=== PATIENT | female | born 1965 | race Caucasian/White ===

== ENCOUNTER 2018-05-12 01:01 | Emergency (ER) | payer OTHER ==
[~2018-05-12] VITALS: Ht 167.6 cm; Wt 69.9 kg
[2018-05-12 01:06] VITALS: Ht 167.6 cm; Wt 69.9 kg
[2018-05-12] MEDS ORDERED: HYDROCODONE/APAP (5/325) TAB PO ONE (02:00)
[2018-05-12] MEDS ORDERED: HYDR-4011 PO (03:09)
[2018-05-12] MEDS ORDERED: IBUP-1542 PO (03:09)
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
[2018-05-12 03:46] VITALS: BP 115/59; PULSE 71; RESP 18
== END 2018-05-12 03:48 | disposition home or self-care (01) ==
LOC: FTE 01:01
DX: S09.90XA Unspecified injury of head, initial encounter (principal); S00.83XA Contusion of other part of head, initial encounter; S69.92XA Unspecified injury of left wrist, hand and finger(s), initial encounter; Y04.8XXA Assault by other bodily force, initial encounter
CPT/HCPCS: 29125; 70450; 70486; 73110; 73130; Z7502; Z7610